=== PATIENT | female | born 1975 | race African-American/Black ===

== ENCOUNTER 2017-05-10 20:49 | Emergency (ER) | payer SELFPAY ==
[~2017-05-10] VITALS: Ht 160 cm; Wt 70.3 kg
[2017-05-10] MEDS ORDERED: BENADRYL25 MG ORAL (21:12)
[2017-05-10 21:20] VITALS: BP 129/91
[2017-05-10 21:34] VITALS: BP 129/91
--- NOTE | 2017-05-10 21:36 | Emergency Room Report ---
History of Present Illness General Chief Complaint: Eye Problems Source: Patient Present Illness HPI 42-year-old female in no significant past medical history presenting with right eye redness. Patient states that she woke up with the left part of her right thigh with some bright red blood. It is not painful. No blurry vision. Does not take any blood thinners. No fever no chills. No discharge Allergies: Coded Allergies: No Known Allergies (Unverified , 05/10/17) Patient History Past Medical History: see triage record Past Surgical History: none Pertinent Family History: none Last Menstrual Period: 04/05/17 Now: No : 8 Para: 4 Reviewed Nursing Documentation: PMH: Agreed; PSxH: Agreed Nursing Documentation-PMH Past Medical History: No Stated History Review of Systems All Other Systems: negative except mentioned in HPI Physical Exam Vital Signs Date Time Temp Pulse Resp B/P (MAP) Pulse Ox O2 Delivery O2 Flow Rate FiO2 05/10/17 21:08 98.4 86 14 129/91 97 Room Air 98.4 Sp02 EP Interpretation: reviewed, normal General Appearance: normal inspection, well appearing, no apparent distress, alert, GCS 15, non-toxic Head: normocephalic, atraumatic Eyes: right eye other - Right EYE with minimal subconjunctival hemorrhage medial aspect; bilateral eye PERRL, bilateral eye EOMI ENT: normal ENT inspection, normal pharynx, normal voice, moist mucus membranes Neck: normal inspection, full range of motion, supple Respiratory: normal inspection, chest symmetrical Cardiovascular #1: normal inspection, regular rate, rhythm, no edema, normal capillary refill Cardiovascular #2: 2+ radial (R), 2+ radial (L) Gastrointestinal: normal inspection, non tender, soft, non-distended, no guarding Musculoskeletal: normal inspection, back normal, normal range of motion, non- tender Neurologic: normal inspection, alert, oriented x3, responsive, motor strength/ tone normal, sensory intact, normal gait, speech normal Psychiatric: normal inspection, judgement/insight normal, memory normal Skin: normal inspection, normal color, no rash, warm/dry, well hydrated, normal turgor Medical Decision Making Diagnostic Impression: Primary Impression: Subconjunctival hemorrhage of right eye ER Course 42-year-old female with right eye redness no pain no blurry vision DDX: Clinically appears to be subconjunctival hemorrhage Plan: None ER course: Patient has remained stable during ED stay. Disposition: Patient is to be discharged to home. Told to follow-up with primary care doctor Please note that this Emergency Department Report was dictated using [employer]dioramist technology software, occasionally this can lead to erroneous entry secondary to interpretation by the dictation equipment Last Vital Signs Date Time Temp Pulse Resp B/P (MAP) Pulse Ox O2 Delivery O2 Flow Rate FiO2 05/10/17 21:08 98.4 86 14 129/91 97 Room Air 98.4 Disposition: HOME, SELF-CARE Condition: Improved Patient Instructions: Subconjunctival Hemorrhage Additional Instructions: PLEASE SEE YOUR PCP IN 1 WEEK Lyla Manuel M.D. May 10, 2017 21:36
== END 2017-05-10 21:34 | disposition home or self-care (01) ==
LOC: EMR 21:12
DX: H11.31 Conjunctival hemorrhage, right eye (principal)
CPT/HCPCS: 99282